=== PATIENT | female | born 1965 | race Hispanic/Latino ===

== ENCOUNTER → 2016-10-23 | Day surgery (SDC) | payer SELFPAY ==
[~2016-10-23] VITALS: Ht 157.5 cm; Wt 84.4 kg
--- NOTE | 2016-10-23 13:07 | Operative Report ---
Operative/Inv Procedure Report Surgery Date: 10/23/16 Name of Procedure: Abdominoplasty liposuction flanks upper Pre-Operative Diagnosis: Cosmetic lipodystrophy trunk Post-Operative Diagnosis: Same Estimated Blood Loss: scant (300) Surgeon/Disk Recoater: PRANAV SIDDIQUI MD Anesthesia: general endotracheal tube Operative/Procedure Note Note: Patient was counseled in regards to the procedure the alternatives risks and expected outcomes as well as placed her request for surgical intervention to treat lipodystrophy of the trunk. She has requested abdominoplasty. She was given and a SPS informed consent which had returned sign. Suction of the upper lateral chest and a small amount on the lateral waist. Talked about the risks including increasing the risks of surgery overall by adding liposuction to abdominoplasty including. Talked about irregularities in the significant excess of skin and might require a skin excision to make it completely tight. Patient was in agreement signed informed consent today. She was marked in the standing position. With her measuring tape was used. She was brought to the operating placed supine on the table. Venodyne boots are placed and then general endotracheal anesthesia was established intravenous antibiotics were given. Chest reprepped and draped in usual sterile fashion. Abdominoplasty was begun by removing the abdominal flap through the marked plan. It was removed along the abdominal wall fascia after freeing the umbilicus. To the xiphoid and 0 Prolene 3 units from xiphoid to pubis with an additional layer of barbed sutures.
== END ==
LOC: STS 01:48
DX: Z41.1 Encounter for cosmetic surgery (principal); E88.1 Lipodystrophy, not elsewhere classified; J45.909 Unspecified asthma, uncomplicated
CPT/HCPCS: 81025; 88302; J0131; J0171; J0690; J1100; J2250; J2405